=== PATIENT | male | born 1960 | race Caucasian/White ===

== ENCOUNTER 2020-08-18 08:44 | Observation (INO) | payer BC ==
[2020-08-18] MEDS ORDERED: KLONOPIN 1MG1 MG PO (11:08)
[2020-08-18] MEDS ORDERED: MELATONIN3 M1 (11:08)
[2020-08-18 11:18] VITALS: BP 131/78; PULSE 67; TEMP 97.9
--- NOTE | 2020-08-18 11:20 | NUR ---
Patient alert and oriented, answers questions appropraitely. See assessment. Last oral intake 0600 this morning. C/o bilateral flank pain 12/04. Requests Fentanyl for pain, refuses Morpine. Dr Louie notifed of admission. No c/o at this time.
[2020-08-18] MEDS ORDERED: NORCO 325 MG-51 TAB PO ×2 (17:35→19:55)
[2020-08-18] MEDS ORDERED: LEVAQUIN 5500 MG/TA1 PO ×2 (17:35→19:55)
[2020-08-18] MEDS ORDERED: PYRIDIUM 100MG100 MG PO ×2 (17:35→19:55)
[2020-08-18 18:24] VITALS: TEMP 98.2
[2020-08-18 18:40] VITALS: BP 127/79; PULSE 47
[2020-08-18 19:10] VITALS: BP 127/74; PULSE 44
[2020-08-18 19:25] VITALS: BP 139/56; PULSE 55
--- NOTE | 2020-08-18 19:55 | NUR ---
Patient up from PACU at 1840. VSS. Patient ate, ambulated, and voided. No complaints. Went over discharge instructions with patient and spouse. MERCHANT SEAMAN walked patient out with all of his belongings to return home with family.
== END 2020-08-18 19:45 | disposition home or self-care (01) ==
LOC: SURG 08:52
PROVIDERS: ADMIT Urology
DX: N20.1 Calculus of ureter (principal); Z88.0 Allergy status to penicillin; F41.9 Anxiety disorder, unspecified
CPT/HCPCS: C1769; C1894; C2617; G0378; G0379; J0690; J1100; J2405; J2704; J3010; Q9967